=== PATIENT | male | born 1965 | race Caucasian/White ===

== ENCOUNTER 2022-10-06 14:14 | Emergency (ER) | payer OTHER ==
[2022-10-06 14:24] VITALS: BP 135/82; PULSE 89; RESP 17; TEMP 98; BMI 27.1
[2022-10-06] MEDS ORDERED: IBUPROFEN 400 MG TABLET (FP) PO ONE ×2 (15:58→16:19)
== END 2022-10-06 16:40 | disposition home or self-care (01) ==
LOC: JERFT 14:14 → JER 14:14 → JERFT 16:40
DX: R07.81 Pleurodynia (principal)
CPT/HCPCS: 71101-TC-RT-FY; 99283-25